=== PATIENT | female | born 1940 | race Two or more races ===

== ENCOUNTER 2020-06-16 10:04 | Outpatient (CLI) | payer OTHER ==
[~2020-06-16 10:04] MED LIST: CIPRO500 MG PO; ENALAPRIL MALEA10 MG; FLAGYL500MG PO; PROTONIX40 MG PO; VERAPAMIL ER200 MG
== END 2020-06-16 10:16 | disposition home or self-care (01) ==
LOC: TOM 10:04
PROVIDERS: ATTEND Internal Medicine Gastroenterology
DX: K57.90 Diverticulosis of intestine, part unspecified, without perforation or abscess without bleeding (principal); N20.0 Calculus of kidney; K56.600 Partial intestinal obstruction, unspecified as to cause; K57.30 Diverticulosis of large intestine without perforation or abscess without bleeding; D50.8 Other iron deficiency anemias; K44.9 Diaphragmatic hernia without obstruction or gangrene

== ENCOUNTER 2024-11-26 07:25 | Outpatient (CLI) | payer OTHER | END 2024-11-26 07:33 | disposition home or self-care (01) | LOC: TOM 07:25 | PROVIDERS: ATTEND Internal Medicine Gastroenterology | DX: R19.5 Other fecal abnormalities (principal); K56.600 Partial intestinal obstruction, unspecified as to cause; Z86.0101 Personal history of adenomatous and serrated colon polyps ==

== ENCOUNTER 2025-03-29 09:10 | Inpatient (IN) | payer OTHER ==
[~2025-03-29] VITALS: Ht 154.9 cm; Wt 58.1 kg
[2025-03-29] MEDS ORDERED: SYNTHROID50 MCG PO (09:18)
[2025-03-29] MEDS ORDERED: ONDANSETRON HCL 2 MG/ML VIAL IV STA (09:42)
[2025-03-29] MEDS ORDERED: MORPHINE SULFATE 4 MG/ML VIAL IV ONE (09:45)
[2025-03-29] MEDS ORDERED: DIPHENHYDRAMINE HCL 50 MG/ML VIAL 1ML IV ONE (09:45)
[2025-03-29] MEDS ORDERED: 0.9 % SODIUM CHLORIDE 1,000 ML IV SCH ×2 (09:45→19:30)
[2025-03-29] MEDS ORDERED: METHYLPREDNISOLONE SOD SUCC 125 MG VIAL IV ONE (09:45)
[2025-03-29 12:58] LABS: ALT/SGPT 33.0 U/L (12-78); AST/SGOT 22.0 U/L (15-37); BILIRUBIN TOTAL 0.56 mg/dL (0.3-1.2); BUN CREA RATIO 20.0 (7.0-25.0); CREATININE SERUM 0.89 mg/dL (0.55-1.02); GFR 60.42; GLOBULINA 3.8 G/DL (2.4-3.5); OSMOLALITY SERUM 285.0 MOSM/KG (275-295)
[2025-03-29 12:59] LABS: GLUCOSE FASTING 204.0 mg/dL (65-100)
[2025-03-29 13:14] LABS: BASO % 0.2 % (0.1-1.2); EOS # 0.00 (0.04-0.54); EOS % 0.0 % (0.7-7.0); LYMPH # 0.85 (1.18-3.74); LYMPH % 5.2 % (19.3-53.1); MEAN PLATELET VOLUME 10.30 fl (9.4-12.4); MONO # 0.61 (0.24-0.82); MONO % 3.8 % (4.7-12.5); NEUT # 14.66 (1.56-6.13); NEUT % 90.4 % (34.0-71.1); RED CELL DISTRIBUTION WIDTH 14.1 % (11.6-14.4)
[2025-03-29 16:18] LABS: URINE APPEARANCE Clear; URINE BILIRRUBIN Negative (NEGATIVE); URINE BLOOD Negative; URINE COLOR Yellow; URINE GLUCOSE Negative (NEGATIVE); URINE KETONE Trace (NEGATIVE); URINE LEUKOCYTE Negative; URINE NITRATE Negative; URINE PROTEIN Negative (NEGATIVE); URINE UROBILINOGEN 0.2 E.U./dl
[2025-03-29 16:22] LABS: URINE BACTERIA 725.8 uL (0.0-1933); URINE EPITHELIAL CELLS 22.6 uL (0.0-38.8); URINE RBC 8.9 uL (0.0-20.8); URINE WBC 7.8 uL (0.0-23.2)
[2025-03-29 16:43] LABS: URINE CAST 0.43 uL (0.0-1.40)
[2025-03-29] MEDS ORDERED: PIPERACILLIN/TAZOBACTAM SODIUM 3.375 GM in DEXTROSE 5 % IN WATER 100 ML IV SCH (19:29)
[2025-03-29] MEDS ORDERED: ONDANSETRON HCL 4 MG in 0.9 % SODIUM CHLORIDE 50 ML IV PRN (19:30)
[2025-03-29] MEDS ORDERED: MORPHINE SULFATE 2 MG/ML CARTRIDGE IV PRN (19:30)
[2025-03-29] MEDS ORDERED: ENALAPRILAT DIHYDRATE 1.25 MG/ML VIAL IV PRN (19:45)
[2025-03-29 22:01] LABS: INR 1.05
[2025-03-30] MEDS ORDERED: FAMOTIDINE/PF 20 MG in 0.9 % SODIUM CHLORIDE 8 ML IV PUSH SCH (09:00)
[2025-03-30 09:59] VITALS: BP 163/82; O2SAT 100
[2025-03-30 17:52] VITALS: BP 190/90; O2SAT 98
[2025-03-31 09:16] VITALS: BP 187/00; O2SAT 95
[2025-03-31 16:43] VITALS: BP 183/94; O2SAT 96
[2025-03-31 22:55] VITALS: BP 173/92
[2025-04-01] MEDS ORDERED: MORPHINE SULFATE 2 MG/ML CARTRIDGE IV PRN (01:15)
[2025-04-01 01:44] VITALS: BP 142/62; O2SAT 98
[2025-04-01 07:12] LABS: BASO % 0.3 % (0.1-1.2); EOS # 0.07 (0.04-0.54); EOS % 0.7 % (0.7-7.0); LYMPH # 1.20 (1.18-3.74); LYMPH % 12.5 % (19.3-53.1); MEAN PLATELET VOLUME 10.10 fl (9.4-12.4); MONO # 0.91 (0.24-0.82); MONO % 9.5 % (4.7-12.5); NEUT # 7.31 (1.56-6.13); NEUT % 76.5 % (34.0-71.1); RED CELL DISTRIBUTION WIDTH 14.1 % (11.6-14.4)
[2025-04-01 07:52] LABS: BUN CREA RATIO 18.0 (7.0-25.0); CREATININE SERUM 0.66 mg/dL (0.55-1.02); GFR 85.32; GLUCOSE FASTING 112.0 mg/dL (65-100); OSMOLALITY SERUM 285.0 MOSM/KG (275-295)
[2025-04-01 17:35] VITALS: BP 176/81; O2SAT 95
[2025-04-02 00:49] VITALS: BP 184/99; O2SAT 97
[2025-04-02 01:50] VITALS: BP 190/93
[2025-04-02 09:03] VITALS: BP 179/76; O2SAT 97
[2025-04-02 16:00] VITALS: BP 160/70; O2SAT 95
[2025-04-02] MEDS ORDERED: SODIUM CHLORIDE 0.45 % 1,000 ML IV SCH (20:00)
[2025-04-02] MEDS ORDERED: AMLODIPINE BESYLATE 5 MG TABLET PO STA (21:52)
[2025-04-03 00:30] VITALS: BP 147/83; O2SAT 98
[2025-04-03] MEDS ORDERED: AMLODIPINE BESYLATE 5 MG TABLET PO SCH (09:00)
[2025-04-03 09:03] VITALS: BP 160/102; O2SAT 100
[2025-04-03] MEDS ORDERED: MORPHINE SULFATE 2 MG/ML CARTRIDGE IV PRN (09:30)
[2025-04-03 16:17] VITALS: BP 161/83; O2SAT 96
[2025-04-03 17:34] VITALS: BP 165/91
[2025-04-03] MEDS ORDERED: ENALAPRILAT DIHYDRATE 1.25 MG/ML VIAL IV PRN (19:45)
[2025-04-04 01:10] VITALS: BP 153/84; O2SAT 96
[2025-04-04 08:20] VITALS: BP 144/79; O2SAT 94
[2025-04-04 16:00] VITALS: BP 156/80; O2SAT 97
[2025-04-05 01:20] VITALS: BP 158/79; O2SAT 96
[2025-04-05 08:02] LABS: BASO % 0.3 % (0.1-1.2); EOS # 0.15 (0.04-0.54); EOS % 1.2 % (0.7-7.0); LYMPH # 1.57 (1.18-3.74); LYMPH % 13.0 % (19.3-53.1); MEAN PLATELET VOLUME 9.90 fl (9.4-12.4); MONO # 0.86 (0.24-0.82); MONO % 7.1 % (4.7-12.5); NEUT # 9.44 (1.56-6.13); NEUT % 78.0 % (34.0-71.1); RED CELL DISTRIBUTION WIDTH 13.7 % (11.6-14.4)
[2025-04-05 08:40] LABS: INR 1.1
[2025-04-05 08:51] LABS: ALT/SGPT 36.0 U/L (12-78); AST/SGOT 23.0 U/L (15-37); BILIRUBIN TOTAL 0.77 mg/dL (0.3-1.2); BUN CREA RATIO 14.0 (7.0-25.0); CREATININE SERUM 0.65 mg/dL (0.55-1.02); GFR 86.84; GLOBULINA 3.4 G/DL (2.4-3.5); GLUCOSE FASTING 64.0 mg/dL (65-100); OSMOLALITY SERUM 272.0 MOSM/KG (275-295)
[2025-04-05 10:13] VITALS: BP 166/72; O2SAT 95
[2025-04-05] MEDS ORDERED: FAMOTIDINE/PF 20 MG/2 ML VIAL IV SCH (10:13)
[2025-04-05] MEDS ORDERED: METOCLOPRAMIDE HCL 5 MG/ML VIAL IV SCH (10:13)
[2025-04-05] MEDS ORDERED: POTASSIUM CHLORIDE/D5-0.9%NACL 1,000 ML IV NR (10:15)
[2025-04-05] MEDS ORDERED: ENALAPRILAT DIHYDRATE 1.25 MG/ML VIAL IV SCH (12:00)
[2025-04-05 16:34] VITALS: BP 154/80; O2SAT 97
[2025-04-06 01:41] VITALS: BP 151/83; O2SAT 96
[2025-04-06 08:00] VITALS: BP 170/80; O2SAT 96
[2025-04-06] MEDS ORDERED: MAGNESIUM SULFATE IN WATER 50 ML IV SCH (08:00)
[2025-04-06] MEDS ORDERED: POTASSIUM CHLORIDE IN WATER 40 MEQ/100 ML PIGGYBAG IV SCH (09:00)
[2025-04-06] MEDS ORDERED: LEVOTHYROXINE SODIUM 100MCG/ML REDILUIDO IV SCH (09:00)
[2025-04-06 17:40] VITALS: BP 175/80; O2SAT 98
[2025-04-06 21:40] VITALS: BP 162/78
[2025-04-07 00:49] VITALS: BP 147/86; O2SAT 97
[2025-04-07 06:48] LABS: BUN CREA RATIO 8.0 (7.0-25.0); CREATININE SERUM 0.39 mg/dL (0.55-1.02); GFR 156.57; GLUCOSE FASTING 81.0 mg/dL (65-100); OSMOLALITY SERUM 281.0 MOSM/KG (275-295)
[2025-04-07 08:00] VITALS: BP 170/85; O2SAT 98
[2025-04-07] MEDS ORDERED: POTASSIUM CHLORIDE IN WATER 40 MEQ/100 ML PIGGYBAG IV NR (11:35)
[2025-04-07 16:51] VITALS: BP 189/95; O2SAT 99
[2025-04-07] MEDS ORDERED: DEXTROSE 5%-WATER 100ML IV.SOLN ONE (22:20)
[2025-04-08] VITALS: BP 161/72; O2SAT 95
[2025-04-08 06:00] VITALS: BP 105/85
[2025-04-08 08:30] VITALS: BP 160/84
[2025-04-08 16:22] VITALS: BP 167/84; O2SAT 98
[2025-04-08 17:02] LABS: BASO % 0.5 % (0.1-1.2); EOS # 0.08 (0.04-0.54); EOS % 0.9 % (0.7-7.0); LYMPH # 1.25 (1.18-3.74); LYMPH % 13.3 % (19.3-53.1); MEAN PLATELET VOLUME 10.80 fl (9.4-12.4); MONO # 0.88 (0.24-0.82); MONO % 9.4 % (4.7-12.5); NEUT # 7.10 (1.56-6.13); NEUT % 75.4 % (34.0-71.1); RED CELL DISTRIBUTION WIDTH 14.3 % (11.6-14.4)
[2025-04-08 20:00] VITALS: BP 195/94; O2SAT 100
[2025-04-08 21:00] VITALS: BP 156/76
[2025-04-09 00:26] VITALS: BP 141/82; O2SAT 96
[2025-04-09 07:38] LABS: BASO % 0.6 % (0.1-1.2); EOS # 0.14 (0.04-0.54); EOS % 1.6 % (0.7-7.0); LYMPH # 1.16 (1.18-3.74); LYMPH % 13.2 % (19.3-53.1); MEAN PLATELET VOLUME 10.40 fl (9.4-12.4); MONO # 0.83 (0.24-0.82); MONO % 9.4 % (4.7-12.5); NEUT # 6.61 (1.56-6.13); NEUT % 74.9 % (34.0-71.1); RED CELL DISTRIBUTION WIDTH 14.3 % (11.6-14.4)
[2025-04-09 07:43] LABS: BUN CREA RATIO 5.0 (7.0-25.0); CREATININE SERUM 0.4 mg/dL (0.55-1.02); GFR 152.07; GLUCOSE FASTING 104.0 mg/dL (65-100); OSMOLALITY SERUM 281.0 MOSM/KG (275-295)
[2025-04-09 10:01] VITALS: BP 168/83; O2SAT 95
[2025-04-09] MEDS ORDERED: POTASSIUM BICARBONATE/CIT AC 25 MEQ TABLET.EFF PO SCH (13:00)
== END 2025-04-09 13:47 | disposition home or self-care (01) | DRG 390 ==
LOC: ER 09:10 → SEC-K 19:39 → SURH 03-31 10:26
PROVIDERS: Emergency Medicine; General Practice; Internal Medicine; ADMIT Internal Medicine; ATTEND Internal Medicine
PROC: BW21YZZ Computerized Tomography (CT Scan) of Abdomen and Pelvis using Other Contrast (ICD-10-PCS; principal; 2025-03-29)
PROC: 0DH68UZ Insertion of Feeding Device into Stomach, Via Natural or Artificial Opening Endoscopic (ICD-10-PCS; 2025-04-03)
DX: K56.699 Other intestinal obstruction unspecified as to partial versus complete obstruction (principal); I10 Essential (primary) hypertension; E03.9 Hypothyroidism, unspecified